=== PATIENT | female | born 1960 | race Hispanic/Latino ===

== ENCOUNTER 2017-02-23 14:56 | Emergency (ER) | payer OTHER ==
[2017-02-23 16:23] LABS: Hematocrit 43.2 % (30.3-42.9); Hemoglobin 14.5 gm/dl (10.1-14.3); Mean Corpuscular HGB Conc 34 % (30-34); Mean Corpuscular Hemoglobin 29 pg (28-32); Mean Corpuscular Volume 86 fl (79-97); Platelet Count 377 K/mm3 (140-440); Red Cell Distribution Width 14.2 % (13.2-15.2)
[2017-02-23 16:24] LABS: White Blood Count 21.3 K/mm3 (4.5-11.0)
[2017-02-23 16:57] LABS: Bilirubin,Urine NEG (Negative); Blood,Urine MOD (Negative); Ketones,Urine 20 mg/dL (Negative); Leukocyte Esterase,Urine NEG (Negative); Mucus,Urine 2+ /HPF; Nitrite,Urine NEG (Negative); Urobilinogen,Urine < 2.0 mg/dL (<2.0)
[2017-02-23 18:28] LABS: Alanine Aminotransferase 14 units/L (7-56); Albumin 4.5 g/dL (3.9-5); Albumin/Globulin Ratio 1.4 %; Alkaline Phosphatase 107 units/L (35-129); Anion Gap 20 mmol/L; BUN/Creatinine Ratio 20; Blood Urea Nitrogen 12 mg/dL (7-17); Calcium 9.6 mg/dL (8.4-10.2); Carbon Dioxide 26 mmol/L (22-30); Chloride 99.2 mmol/L (98-107); Glucose 154 mg/dL (65-100); Lipase 35 units/L (13-60); Sodium 141 mmol/L (137-145); Total Protein 7.8 g/dL (6.3-8.2)
[2017-02-23 19:23] LABS: Basophils % (Manual) 0 % (0.0-1.8); Blastocytes % (Manual) 0 %; Eosinophils % (Manual) 0 % (0.0-4.3)
[2017-02-23 19:26] LABS: Anisocytosis 1+; Platelet Estimate Consistent w Auto
[2017-02-23 19:27] LABS: Diff Status Complete
[2017-02-23] MEDS ORDERED: NACL 0.9% 1000 ML 1,000 ML IV ONE (20:35)
--- NOTE | 2017-02-23 20:40 | Emergency Department Report ---
HPI - General Chief Complaint: Nausea/Vomiting/Diarrhea Time Seen by Provider: 02/23/17 20:27 - HPI HPI: Room 5 The patient is a 56-year-old female presents with chief complaint of nausea vomiting and diarrhea. The patient is a 34 days's his nausea vomiting and diarrhea. The patient states she has had hot and cold chills and felt fatigued. Patient claims a body aches "all over." Patient denies recent antibiotic use or sick contacts. Patient of MrCesar subjective fever. Patient denies dysuria or hematuria. When asked how she is feeling currently the patient via she feels fatigued, thirsty nauseous and "dehydrated." ED Past Medical Hx - Past Medical History Previous Medical History?: Yes - Surgical History Past Surgical History?: Yes Hx Cholecystectomy: Yes (remote) Additional Surgical History: right foot surgery - Family History Family history: no significant - Social History Smoking Status: Former Smoker (none 10 years) Substance Use Type: None - Medications Home Medications: Home Medications Medication Instructions Recorded Confirmed Last Taken Type Diphenoxylate HCl/Atropine 2 each PO QID PRN #20 tablet 02/23/17 Unknown Rx [Lomotil 2.5-0.025 mg Tablet] HYDROcodone/APAP 5-325 [[place] 1 - 2 each PO Q6HR PRN #14 tablet 02/23/17 Unknown Rx 5/325] Levofloxacin [Levaquin] 750 mg PO QDAY #10 tablet 02/23/17 Unknown Rx Promethazine [Phenergan TAB] 25 mg PO Q6HR PRN #20 tab 02/23/17 Unknown Rx Promethazine [Phenergan] 25 mg IN Q6HR PRN #5 supp.rect 02/23/17 Unknown Rx metroNIDAZOLE [Flagyl] 500 mg PO Q8HR #30 tablet 02/23/17 Unknown Rx ED Review of Systems ROS: Stated complaint: NVD Other details as noted in HPI Comment: All other systems reviewed and negative Constitutional: chills, fever (subjective) Eyes: denies: eye pain, eye discharge, vision change ENT: denies: ear pain, throat pain Respiratory: denies: cough, shortness of breath, wheezing Cardiovascular: denies: chest pain, palpitations Endocrine: no symptoms reported Gastrointestinal: abdominal pain (aching all over), nausea, vomiting, diarrhea Genitourinary: denies: urgency, dysuria, hematuria, discharge Musculoskeletal: myalgia. denies: back pain, joint swelling, arthralgia Skin: denies: rash, lesions Neurological: denies: headache, weakness, paresthesias Psychiatric: denies: anxiety, depression Hematological/Lymphatic: denies: easy bleeding, easy bruising Physical Exam - Physical Exam Vital Signs: Vital Signs 02/23/17 02/23/17 15:33 20:13 Temperature 97.5 F L 98.3 F Pulse Rate 76 78 Respiratory 18 16 Rate Blood Pressure 174/68 Blood Pressure 174/70 [Left] O2 Sat by Pulse 98 97 Oximetry Physical Exam: GENERAL: The patient is well-developed well-nourished female lying on stretcher not appearing to be in acute distress. [] HEENT: Normocephalic. Atraumatic. Extraocular motions are intact. NECK: Supple. Trachea midline CHEST/LUNGS: Clear to auscultation. There is no respiratory distress noted. HEART/CARDIOVASCULAR: Regular. There is no tachycardia. There is no gallop rub or murmur. ABDOMEN: Abdomen is soft, with mild soreness to palpation in the left lower quadrant and right upper quadrant. There is no rebound or guarding. Patient has normal bowel sounds. There is no abdominal distention. SKIN: There is no rash. There is no edema. There is no diaphoresis. NEURO: The patient is awake, alert, and oriented. The patient is cooperative. The patient has normal speech MUSCULOSKELETAL: There is no evidence of acute injury. ED Course Vital Signs 02/23/17 02/23/17 15:33 20:13 Temperature 97.5 F L 98.3 F Pulse Rate 76 78 Respiratory 18 16 Rate Blood Pressure 174/68 Blood Pressure 174/70 [Left] O2 Sat by Pulse 98 97 Oximetry - Reevaluation(s) Reevaluation #1: 02/23/17 23:04 Patient states she feels improved and is now tolerating medication and liquids by mouth ED Medical Decision Making - Lab Data Result diagrams: 02/23/17 16:02 02/23/17 16:10 Laboratory Tests 02/23/17 02/23/17 02/23/17 16:02 16:05 16:10 WBC 21.3 H RBC 5.00 Hgb 14.5 H Hct 43.2 H MCV 86 MCH 29 MCHC 34 RDW 14.2 Plt Count 377 Add Manual Diff Complete Total Counted 100 Seg Neutrophils % Catcher Filter Tip Seg Neuts % (Manual) 83.0 H Band Neutrophils % 8.0 Lymphocytes % (Manual) 8.0 L Reactive Lymphs % (Man) 0 Monocytes % (Manual) 1.0 Eosinophils % (Manual) 0 Basophils % (Manual) 0 Metamyelocytes % 0 Myelocytes % 0 Promyelocytes % 0 Blast Cells % 0 Nucleated RBC % Not Reportable Seg Neutrophils # Man 17.7 H Band Neutrophils # 1.7 Lymphocytes # (Manual) 1.7 Abs React Lymphs (Man) 0.0 Monocytes # (Manual) 0.2 Eosinophils # (Manual) 0.0 Basophils # (Manual) 0.0 Metamyelocytes # 0.0 Myelocytes # 0.0 Promyelocytes # 0.0 Blast Cells # 0.0 WBC Morphology Not Reportable Hypersegmented Neuts Not Reportable Hyposegmented Neuts Not Reportable Hypogranular Neuts Not Reportable Smudge Cells Not Reportable Toxic Granulation Not Reportable Toxic Vacuolation Not Reportable Dohle Bodies Not Reportable Pelger-Huet Anomaly Not Reportable Ayaz Rods Not Reportable Platelet Estimate Consistent w auto Clumped Platelets Not Reportable Plt Clumps, EDTA Not Reportable Large Platelets Not Reportable Giant Platelets Not Reportable Platelet Satelliting Not Reportable Plt Morphology Comment Not Reportable RBC Morphology Not Reportable Dimorphic RBCs Not Reportable Polychromasia Not Reportable Hypochromasia Not Reportable Poikilocytosis Not Reportable Anisocytosis 1+ Microcytosis Not Reportable Macrocytosis Not Reportable Spherocytes Not Reportable Pappenheimer Bodies Not Reportable Sickle Cells Not Reportable Target Cells Not Reportable Tear Drop Cells Not Reportable Ovalocytes Not Reportable Helmet Cells Not Reportable Schwartz-Latty Bodies Not Reportable [place] Rings Not Reportable [place] Cells Not Reportable Bite Cells Not Reportable Crenated Cell Not Reportable Elliptocytes Not Reportable Acanthocytes (Spur) Not Reportable Rouleaux Not Reportable Hemoglobin C Crystals Not Reportable Schistocytes Not Reportable Malaria parasites Not Reportable Chris Bodies Not Reportable Hem Pathologist Commnt No Sodium 141 Potassium 4.0 Chloride 99.2 Carbon Dioxide 26 Anion Gap 20 BUN 12 Creatinine 0.6 L Estimated GFR > 60 BUN/Creatinine Ratio 20 Glucose 154 H Calcium 9.6 Total Bilirubin 0.60 AST 16 ALT 14 Alkaline Phosphatase 107 Total Protein 7.8 Albumin 4.5 Albumin/Globulin Ratio 1.4 Lipase 35 HCG, Qual Negative Urine Color Urine Turbidity Urine pH Ur Specific [place] Urine Protein Urine Glucose (UA) Urine Ketones Urine Blood Urine Nitrite Urine Bilirubin Urine Urobilinogen Ur Leukocyte Esterase Urine WBC (Auto) Urine RBC (Auto) U Epithel Cells (Auto) Urine Mucus 02/23/17 16:17 WBC RBC Hgb Hct MCV MCH MCHC RDW Plt Count Add Manual Diff Total Counted Seg Neutrophils % Seg Neuts % (Manual) Band Neutrophils % Lymphocytes % (Manual) Reactive Lymphs % (Man) Monocytes % (Manual) Eosinophils % (Manual) Basophils % (Manual) Metamyelocytes % Myelocytes % Promyelocytes % Blast Cells % Nucleated RBC % Seg Neutrophils # Man Band Neutrophils # Lymphocytes # (Manual) Abs React Lymphs (Man) Monocytes # (Manual) Eosinophils # (Manual) Basophils # (Manual) Metamyelocytes # Myelocytes # Promyelocytes # Blast Cells # WBC Morphology Hypersegmented Neuts Hyposegmented Neuts Hypogranular Neuts Smudge Cells Toxic Granulation Toxic Vacuolation Dohle Bodies Pelger-Huet Anomaly Ayaz Rods Platelet Estimate Clumped Platelets Plt Clumps, EDTA Large Platelets Giant Platelets Platelet Satelliting Plt Morphology Comment RBC Morphology Dimorphic RBCs Polychromasia Hypochromasia Poikilocytosis Anisocytosis Microcytosis Macrocytosis Spherocytes Pappenheimer Bodies Sickle Cells Target Cells Tear Drop Cells Ovalocytes Helmet Cells Schwartz-Latty Bodies [place] Rings [place] Cells Bite Cells Crenated Cell Elliptocytes Acanthocytes (Spur) Rouleaux Hemoglobin C Crystals Schistocytes Malaria parasites Chris Bodies Hem Pathologist Commnt Sodium Potassium Chloride Carbon Dioxide Anion Gap BUN Creatinine Estimated GFR BUN/Creatinine Ratio Glucose Calcium Total Bilirubin AST ALT Alkaline Phosphatase Total Protein Albumin Albumin/Globulin Ratio Lipase HCG, Qual Urine Color Yellow Urine Turbidity Clear Urine pH 6.0 Ur Specific [place] 1.026 Urine Protein 100 mg/dl Urine Glucose (UA) Neg Urine Ketones 20 Urine Blood Mod Urine Nitrite Neg Urine Bilirubin Neg Urine Urobilinogen < 2.0 Ur Leukocyte Esterase Neg Urine WBC (Auto) 2.0 Urine RBC (Auto) 20.0 U Epithel Cells (Auto) 3.0 Urine Mucus 2+ - Differential Diagnosis gastroenteritis, colitis, pancreatitis, UTI, partial small bowel obstructio Critical care attestation.: If time is entered above; I have spent that time in minutes in the direct care of this critically ill patient, excluding procedure time. ED Disposition Clinical Impression: Acute colitis, Acute abdominal pain, Nausea vomiting and diarrhea Disposition: TO HOME OR SELFCARE Is pt being admited?: No Does the pt Need Aspirin: No Condition: Stable Instructions: Acute Nausea and Vomiting (ED), Infectious Colitis (ED) Additional Instructions: Return to the emergency department immediately should you develop worsening symptoms, fever, inability to tolerate food or liquid or any other concerns. Prescriptions: Diphenoxylate HCl/Atropine [Lomotil 2.5-0.025 mg Tablet] 2 each PO QID PRN #20 tablet PRN Reason: Diarrhea HYDROcodone/APAP 5-325 [[place] 5/325] 1 - 2 each PO Q6HR PRN #14 tablet PRN Reason: Pain Levofloxacin [Levaquin] 750 mg PO QDAY #10 tablet metroNIDAZOLE [Flagyl] 500 mg PO Q8HR #30 tablet Promethazine [Phenergan TAB] 25 mg PO Q6HR PRN #20 tab PRN Reason: Nausea Promethazine [Phenergan] 25 mg IN Q6HR PRN #5 supp.rect PRN Reason: Vomiting Referrals: RADU HERNANDEZ MD [Staff Physician] - 3-5 Days (Dr. Hernandez is a primary doctor. Please follow up with him for further evaluation and to be established as a patient) MAICOL DIAZ MD [Staff Physician] - [facility] (Dr. Diaz is a pulmonary fellow. Please follow up with him for further evaluation) Time of Disposition: 23:09 (d/c p ivf)
[2017-02-23] MEDS ORDERED: MORPHINE ONE ×2 (20:58)
[2017-02-23] MEDS: MORPHINE IV ONE (21:01)
[2017-02-23] MEDS: ZOFRAN IV ONE (21:02)
[2017-02-23] MEDS: NACL 0.9% 1000 ML 1,000 ML IV ONE (21:02)
--- NOTE | 2017-02-23 21:38 | Cat Scan Report ---
FINAL REPORT EXAM: CT ABDOMEN PELVIS W CON HISTORY: diffuse abdominal pain, leukocytosis. n/v/d TECHNIQUE: Serial axial images through the abdomen and pelvis with coronal and sagittal reconstruction. Intravenous administration 100 milliliters Omnipaque 300 PRIORS: None. FINDINGS: No focal consolidations are seen in the lung bases. No pleural effusion is seen. There is a fat containing paraumbilical hernia. No focal hepatic lesion is identified. Gallbladder is absent. Small amount of stranding is seen in the fat adjacent to the tail of the pancreas. Spleen appears normal. The adrenal glands appear slightly thickened, but maintain adrenal form configuration. This may indicate hyperplasia. Kidneys appear normal. Aorta is normal in caliber. Bladder appears normal. No gross abnormality is seen in the uterus or adnexa. The wall of the colon appears slightly thickened. Appendix appears normal. Scattered diverticula are seen arising from the colon. Degenerative changes are seen in the spine. IMPRESSION: 1. The wall of the colon appears slightly thickened. This may be exaggerated by nondistention. Possibility of colitis is not excluded. 2. Diverticulosis is noted. 3. Small amount of stranding is seen in the fat adjacent to the tail of the pancreas. This could be related to pancreatitis in the proper clinical setting. Correlation with laboratory values is necessary. 4. Small fat containing paraumbilical hernia.
[2017-02-23] MEDS: FLAGYL PO ONE (22:55)
[2017-02-23] MEDS: LEVAQUIN PO ONE (22:55)
[2017-02-23 23:35] VITALS: BP 133/73
== END 2017-02-24 00:45 ==
LOC: ED 14:56
DX: K52.9 Noninfective gastroenteritis and colitis, unspecified (principal); Z87.891 Personal history of nicotine dependence
CPT/HCPCS: 36415; 74177; 80053; 81001; 83690; 84703; 85007; 85025; 96361; 96374; 96375; 99284; J2270; J2405; J7030; Q9967